=== PATIENT | male | born 1985 | race Hispanic/Latino ===

== ENCOUNTER 2018-02-10 18:00 | Emergency (ER) | payer OTHER, SELFPAY ==
[2018-02-10] MEDS ORDERED: NA CHLORIDE 0.9% 1,000 ML ONE (18:20)
[2018-02-10 18:26] LABS: Absolute Lymphocytes (CBC) 2.3 K/uL (0.7-4.9); Absolute Monocytes 1.2 K/uL (0.1-1.3); Absolute Neutrophil 6.6 K/uL (1.8-8.0); Basophils % 0.8 % (0-1.3); Hematocrit 42.8 % (39.6-49.0); Lymphocytes % 22.2 % (15.3-44.8); MCH 30.8 pg (27.0-35.0); MCV 93.3 fL (80-100); MPV 8.3 fL (7.6-11.3); Monocytes % 11.6 % (3.3-12.3); RBC Red Blood Cell Count 4.59 M/uL (4.33-5.43)
[2018-02-10 18:35] LABS: Protime INR 0.97
[2018-02-10 18:41] LABS: Bicarbonate 24 mEq/L (21-31); Glucose Level 112 mg/dL (65-120); Potassium 3.8 mEq/L (3.6-5.0); Sodium Level 135 mEq/L (135-145)
[2018-02-10 18:47] LABS: ALT/SGPT 22 IU/L (10-60); AST/SGOT 27 IU/L (10-42); Albumin 3.9 g/dL (3.2-5.5); Alkaline Phosphatase 64 IU/L (42-121); BUN Blood Urea Nitrogen 15 mg/dL (6-20); Bilirubin Direct < 0.1 mg/dL (0-0.2); Bilirubin Total 0.3 mg/dL (0.3-1.2); Creatine Phosphokinase 204 IU/L (22-269); Magnesium 1.9 mg/dL (1.8-2.5); Protein, Total 7.1 g/dL (6.0-8.3)
--- NOTE | 2018-02-10 19:26 | RAD REPORT ---
EXAM DESCRIPTION: CT - Chest For Pe Angio - 02/10/2018 7:02 pm CLINICAL HISTORY: Chest pain and syncope COMPARISON: None. TECHNIQUE: Dynamically enhanced axial 3 mm thick images of the chest were obtained during administra tion of <100> mL Isovue 370 IV contrast. Coronal and oblique reconstruction images were generated and reviewed. Exam utilizes a protocol for optimal evaluation of pulmonary arterial tree. All CT scans are performed using dose optimization technique as appropriate and may include automated exposure control or mA/KV adjustment according to patient size. FINDINGS: The opacification of pulmonary arteries is somewhat suboptimal is secondary to respiratory motion artifact. A gross pulmonary embolus is not seen. The heart is mildly to moderately enlarged. A thoracic aortic aneurysm is not noted. A pleural effusion is not seen. A pericardial effusion is not seen. A lung consolidation is not present. IMPRESSION: No gross evidence for pulmonary embolism Mild to moderate cardiomegaly. The left ventricle has a somewhat unusual appearance. Evaluation with ECHO may be helpful for further evaluation
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
[2018-02-10] MEDS ORDERED: FENTANYL CITR 100 MCG/2 ML ONE (21:08)
--- NOTE | 2018-02-11 06:47 | EKG ---
Test Date: 2018-02-10 Test Time: 19:27:25 Materials And Processes Manager: TATYANA MEASUREMENT RESULTS: Intervals: Rate: 67 MD: 190 QRSD: 120 QT: 388 QTc: 409 [place]: P: 30 MD: 190 QRS: 131 T: -1 INTERPRETIVE STATEMENTS: Normal sinus rhythm Right axis deviation Nonspecific intraventricular conduction delay Non specific T wave abnormality Abnormal ECG No previous ECG available for comparison Electronically Signed On 02-11-18 06:47:01 CDT by Corey Romero
== END 2018-02-10 21:56 | disposition short-term general hospital (02) ==
LOC: ER 18:00
DX: I51.7 Cardiomegaly (principal); R01.1 Cardiac murmur, unspecified
CPT/HCPCS: 36415; 71275; 80048; 80076; 82550; 83735; 83880; 84484; 85025; 85610; 87040; 93005; 96361; 96374; 99285; J3010; J7030; Q9967

== ENCOUNTER 2020-07-25 12:43 | Emergency (ER) | payer SELFPAY ==
--- OUTSIDE RECORDS SUMMARY | 2020-07-25 12:45 | XMS REPORT | Clinical Summary ---
:1985 Author Organization [facility] Address [address] [place] [address] Care Team Providers Name Role Phone Unavailable Primary Care Provider Unavailable Allergies No Known Allergies Medications No known medications Active Problems Problem Noted Date Syncope, unspecified syncope type 02/12/2018 Syncope 02/11/2018 Brugada syndrome 02/10/2018 Marijuana abuse 02/10/2018 Tobacco abuse 02/10/2018 ETOH abuse 02/10/2018 Social History Tobacco Use Types Packs/Day Years Used Date Current Every Day Smoker 0.5 10 Smokeless Tobacco: Never Used Tobacco Cessation: Ready to Quit: No Alcohol Use Drinks/Week oz/Week Comments Yes 4 Cans of beer 4.0 hasn't drank sin ce 02/04 Sex Assigned at Date Recorded Not on file Last Filed Vital Signs Not on file Plan of Treatment Health Maintenance Due Date Last Done Comments PNEUMOCOCCAL VACCINE 0-64 YRS (1 of 1 - PPSV23) 1992 INFLUENZA VACCINE (#1) 2020 LIPID PANEL 02/11/2021 02/11/2018 Results Not on fileafter 07/25/2019 Advance Directives For more information, please contact: [phone] Code Status Date Activated Date Inactivated Comments Full Code 02/11/2018 12:28 AM 02/14/2018 9:06 PM This code status was determined by: Patient
--- OUTSIDE RECORDS SUMMARY | 2020-07-25 12:45 | XMS REPORT | Continuity of Care Document ---
:1985 Author Organization [facility] t Address [address] [place] [address] Care Team Providers Name Role Phone CELIO Attending Clinician Unavailable MITUL JEAN Admitting Clinician Unavailable Problems Condition Condition Condition Status Onset Resolution Last Treating Co mments Source Name Details Category Date Date Treatment Clinician Date Syncope, Syncope, Disease [facility] Denisha kes - d syncope d syncope 00:00: [facility] jigna type type 00 Center Syncope Syncope [facility] [place] Brugada Brugada Disease Active [facility] syndrome [facility] Marijuana Marijuana Disease Active [facility] abuse abuse [facility] 00 [place] Tobacco Tobacco Disease Active [facility] ETOH abuse ETOH abuse Disease Active [facility] Allergies, Adverse Reactions, Alerts This patient has no known allergies or adverse reactions. Social History Social Habit Start Date Stop Date Quantity Comments Source Sex Assigned At [facility] Cigarettes smoked 2018-02-10 2018-02-[address] [facility] - current (pack per 00:00:00 00:[facility]:00 [facility] Center day) - Reported Cigarette 2018-02-10 2018-02-[address] [facility] - pack-years 00:00:00 00:00:00 [facility] Tobacco use and 2018-02-10 2018-02-10 Never used [facility] St Denisha kes - exposure 00:00:00 00:00:00 [facility] Alcohol intake 2018-02-10 2018-02-10 [facility]00 [facility] alcohol [facility] Center (finding) Alcohol Comment 2018-02-10 2018-02-[address] [facility] - 00:00:00 00:00:00 since 02/04 [facility] Center Smoking Status Start Date Stop Date Source Current every day smoker 2018-02-10 00:00:00 [facility] Medications This patient has no known medications. Procedures This patient has no known procedures. Plan of Care Planned Activity Planned Date Details Comments Source Future Scheduled 2021-02-[address] [facility]00 (procedure) [code = [facility] [id number]] Future Scheduled 2020-05-13 INFLUENZA VACCINE (#1) [facility]00 [code = INFLUENZA Medical Ce nter VACCINE (#1)] Future Scheduled [address] [facility] - Test 00:00:00 0-64 YRS (1 of 1 - Medical C enter PPSV23) [code = PNEUMOCOCCAL VACCINE 0-64 YRS (1 of 1 - PPSV23)] Results Test Description Test Time Test Comments Results Result Comments Source COMPREHENSIVE METABOLIC PANEL 2018-02-14 05:35:00 Test Item Value Reference Range Interpretation Comme nts TOTAL PROTEIN (BEAKER) 7.6 gm/dL 6.0-8.3 (test code = 770) ALBUMIN (BEAKER) (test code 4.3 g/dL 3.5-5.0 = 1145) ALKALINE PHOSPHATASE 75 U/L 40-150 (BEAKER) (test code = 346) BILIRUBIN TOTAL (BEAKER) 0.3 mg/dL 0.2-1.2 (test code = 377) SODIUM (BEAKER) (test code 135 meq/L 136-145 L = 381) POTASSIUM (BEAKER) (test 4.6 meq/L 3.5-5.1 code = 379) CHLORIDE (BEAKER) (test 100 meq/L 98-107 code = 382) CO2 (BEAKER) (test code = 27 meq/L 22-29 355) BLOOD UREA NITROGEN 18 mg/dL 7-21 (BEAKER) (test code = 354) CREATININE (BEAKER) (test 0.81 mg/dL 0.57-1.25 code = 358) GLUCOSE RANDOM (BEAKER) 103 mg/dL 70-105 (test code = 652) CALCIUM (BEAKER) (test code 9.8 mg/dL 8.4-10.2 = 697) AST (SGOT) (BEAKER) (test 18 U/L 5-34 code = 353) ALT (SGPT) (BEAKER) (test 22 U/L 6-55 code = 347) EGFR (BEAKER) (test code = 111 mL/min/1.73 sq m ESTIMATED GFR IS NOT 1092) ACCURATE CRE ATININE CLEARANCE IN [place] EDICTING GLOMERULAR FILT RATION RATE. ESTIMATED GFR IS NOT APPLICABLE FOR DIALYSIS PATIEN TS. CBC (HEMOGRAM ONLY)2018-02-14 04:36:00 Test Item Value Reference Range Interpretation Comments WHITE BLOOD CELL COUNT (BEAKER) 9.2 K/ L 3.5-10.5 (test code = 775) RED BLOOD CELL COUNT (BEAKER) 4.62 M/ L 4.63-6.08 L (test code = 761) HEMOGLOBIN (BEAKER) (test code = 14.1 GM/DL 13.7-17.5 410) HEMATOCRIT (BEAKER) (test code = 42.4 % 40.1-51.0 411) MEAN CORPUSCULAR VOLUME (BEAKER) 91.8 fL 79.0-92.2 (test code = 753) MEAN CORPUSCULAR HEMOGLOBIN 30.5 pg 25.7-32.2 (BEAKER) (test code = 751) MEAN CORPUSCULAR HEMOGLOBIN CONC 33.3 GM/DL 32.3-36.5 (BEAKER) (test code = 752) RED CELL DISTRIBUTION WIDTH 12.8 % 11.6-14.4 (BEAKER) (test code = 412) PLATELET COUNT (BEAKER) (test 354 K/CU MM 150-450 code = 756) MEAN PLATELET VOLUME (BEAKER) 9.7 fL 9.4-12.4 (test code = 754) NUCLEATED RED BLOOD CELLS 0 /100 WBC 0-0 (BEAKER) (test code = 413) MR, CARDIAC, [id number] 17:41:00Reason for exam:->dlated RV on echo, incomplete RBBB, syncope, evaluate for ARVDFINAL REPORT Cardiac MRI, 13 February 2018 INDICATION: This is a 32-year old male with a diagnosis of dilated RV by echocardiography, incomplete right bundle-branch and syncope presents for assessment. TECHNIQUE: Shwetha ACHIEVA MRI scanner. Morphologic and dynamic cine imaging was performed in multiple projections before and after contrast administration. Thereafter, gadoliniumwas administered, which was then followed by viability/scar imaging. A phased array surface coil wasused for enhanced resolution and ojhvoi-me-eaqhe ratio. Please refer to the contrast sheet scanned in the EPIC system for the amount and route of contrast given. Scanning blood pressure was 120/78. Patient weighs 151 pounds, and the estimated heights is approximately 71 inches. Body surface area is estimated to be 1.85 sq m. FINDINGS: The chest wall and mediastinum are remarkable. Limited imagingof the lungs reveals no gross abnormality; MR is not optimizing assessment of pulmonary parenchymal lung disease. The cardiac chambers demonstrate normal atrioventricular concordance and systemic and pu lmonary venous return. The thoracic aorta is normal in course, caliber, and contour. Central bony artery is normal in calibre. The left ventricle at the upper limits of normal in size, with preserved systolic function. There are no segmental wall motion abnormalities. Quantitative values are as follows: EDV = 200 cc; ESV = 94 cc; stroke volume = 106 cc; and ejection fraction = 53%. Calculated absolute cardiac output = 6.1 liters/min. Absolute left ventricular mass = 108 grams. Index LVEDV = 108 cc/sq m. There is no evidence of hypertrophic cardiomyopathy or left ventricular non-compaction. Viability / scar imaging reveals full thickness, viable myocardium in the entire left ventricle. Thereis no prior myocardial damage. Ventricular thrombus is not identified. A focus examination was performed in the right ventricle, including the infundibulum. There is no MRI findings indicate the presence of ARVD. Specifically, there is no fatty or fibrous replacement of the right ventricle. No regional wall motion abnormalities are identified. Overall right ventricular function is normal. There is no abnormal enhancement of the right ventricular myocardium after gadolinium administration. Quantitative right ventricular functional values are as follows: EDV = 192 cc; ESV = 93 cc; stroke volume =99 cc; and ejection fraction = 52%. Index RV EDV = 104 cc/sq m that is within normal reference range. In the spin echo images, coronary artery origins are normal with no evidence of anomalous coronary artery return. Cine imaging and flow quantification reveal normal aortic, mitral, and tricuspid valve function. CONCLUSIONS: 1. The left ventricle is normal in size and function. Ejection fraction is quantified to be 53%. Quantitative left ventricular functional values are as described above. Viability/scar imaging reveals full thickness, viable appearing myocardium in the entire left ventricle.2. There is no MRI findings to suggest ARVD or other right ventricular cardiomyopathy. There is no focal or generalised aneurysmal dilation of the right ventricle. Normal contraction is seen in the right ventricular myocardium. No regional wall motion abnormalities are identified. Right ventricular function is normal and the RV size is normal. There is no abnormal enhancement of the right ventricular myocardium after gadolinium administration. In the presence of RV cardiomyopathy/AICD, one would probably expect left bundle branch block and not right bundle branch block. Quantitative right ventricular functional values are as described above. 3. Normal coronary artery origins. 4. Note, a lot of time was spent on the evaluation of the pericardium. In the axial images, the apex of the left ventricle is pointing towards the left axilla, that is somewhat unusual. Both spin echo and gradient echo images were available. The pericardium is never confidently identified. Epicardial fat is identified especially along the RV though the right ventricle is immediately posterior to the left-sided c hest wall,, and no pericardial fat is appreciated either. In the cine imaging, no obvious pericardium is identified along the left ventricle, when viewed from the four-chamber and short axis cine imaging. Fatty tissue (a normal finding, instead of lung tissue, is identified between the ascending aorta and the main pulmonary artery). 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 No strangulation of the left atrial appendage is identified. In certain case report, this is associated with incomplete right bundle branch block. It is doubtful the above finding would be the course of the syncope. Correlate clinic ally. Signed: Alex Orosco MDReport Verified Date/Time: 02/13/2018 17:41:20 Reading Location: [facility] P047 Cardiology MRI EEG AWAKE AND [id number] 14:17:00Reason for exam:->LOC, ? SeizuresDate(s) of EE02/13/2018 DATE OF REPORT: 02/13/2018 ACC: [id number] EEG Number: [id number] Test Location: Inpatient Start time: 09:50 Stop time: 10:12 ICD-10: R56.9, R55 CPT Code: 90948 HISTORY: 32 y/o man with hx of tobacco use who presented to an OSH with nausea, SOB, chest pain, syncope on arrival lasting 45 seconds associated with stiffness of extremities and rapid recovery MEDICATIONS THAT COULD AFFECT EEG: hydrocodone, ondansetron TECHNICAL SUMMARY: This is a digital video-EEG recorded with 32 input channels reviewed with bipolar and referential montages using the modified combinatorial system nomenclature. DESCRIPTION OF RECORD: During the maximally alert state a 9-10 Hz posterior dominant rhythm was seen that was symmetric, reactive to eye opening and well regulated. More anteriorly, low voltage frontocentral beta predominated. Drowsiness was characterized by alpha attenuation and increased frontocentral theta. Stage 2 sleep was not reached. SIGNIFICANT VIDEO EVENTS: None SIGNIFICANT ELECTROCARDIOGRAM EVENTS: The EKG shows a regular rhythm with intermittent bradycardia (down to ~40bpm). HV: Hyperventilation was performed for 3 minutes with good effort. No change was s een with HV. PHOTIC STIMULATION: Photic stimulation was done from 1-33 Hz; no photic driving was seen; photoparoxysmal responses were absent. IMPRESSION and CLINICAL CORRELATION: This is a normalAwake and Drowsy EEG, but notable for bradycardia during wakefulness. Please clinically correlate. Candy Turcios MD Neurophysiology Fellow Briana Krause MD, PhD Neurophysiology/Epilepsy Attending [facility] COMPREHENSIVE METABOLIC [id number] 05:35:00 Test Item Value Reference Range Interpretation Comments TOTAL PROTEIN 7.0 gm/dL 6.0-8.3 (BEAKER) (test code = 770) ALBUMIN (BEAKER) 4.0 g/dL 3.5-5.0 (test code = 1145) ALKALINE PHOSPHATASE 67 U/L 40-150 (BEAKER) (test code = 346) BILIRUBIN TOTAL 0.3 mg/dL 0.2-1.2 (BEAKER) (test code = 377) SODIUM (BEAKER) (test 137 meq/L 136-145 code = 381) POTASSIUM (BEAKER) 4.6 meq/L 3.5-5.1 (test code = 379) CHLORIDE (BEAKER) 102 meq/L 98-107 (test code = 382) CO2 (BEAKER) (test 26 meq/L 22-29 code = 355) BLOOD UREA NITROGEN 17 mg/dL 7-21 (BEAKER) (test code = 354) CREATININE (BEAKER) 0.80 mg/dL 0.57-1.25 (test code = 358) GLUCOSE RANDOM 100 mg/dL 70-105 (BEAKER) (test code = 652) CALCIUM (BEAKER) 9.4 mg/dL 8.4-10.2 (test code = 697) AST (SGOT) (BEAKER) 24 U/L 5-34 (test code = 353) ALT (SGPT) (BEAKER) 26 U/L 6-55 (test code = 347) EGFR (BEAKER) (test 113 ESTIMATE D GFR IS code = 1092) mL/min/1.73 sq NOT ACCURA TE m CREATININE CLEARANCE IN PREDICTING GLOMERULAR FILTRATION RATE . ESTIMATED GFR I S NOT APPLICABLE FOR DIALYSIS PATIEN TS. CBC (HEMOGRAM ONLY)2018-02-13 05:20:00 Test Item Value Reference Range Interpretation Comments WHITE BLOOD CELL COUNT (BEAKER) 8.3 K/ L 3.5-10.5 (test code = 775) RED BLOOD CELL COUNT (BEAKER) 4.44 M/ L 4.63-6.08 L (test code = 761) HEMOGLOBIN (BEAKER) (test code = 13.7 GM/DL 13.7-17.5 410) HEMATOCRIT (BEAKER) (test code = 40.9 % 40.1-51.0 411) MEAN CORPUSCULAR VOLUME (BEAKER) 92.1 fL 79.0-92.2 (test code = 753) MEAN CORPUSCULAR HEMOGLOBIN 30.9 pg 25.7-32.2 (BEAKER) (test code = 751) MEAN CORPUSCULAR HEMOGLOBIN CONC 33.5 GM/DL 32.3-36.5 (BEAKER) (test code = 752) RED CELL DISTRIBUTION WIDTH 12.8 % 11.6-14.4 (BEAKER) (test code = 412) PLATELET COUNT (BEAKER) (test 311 K/CU MM 150-450 code = 756) MEAN PLATELET VOLUME (BEAKER) 10.5 fL 9.4-12.4 (test code = 754) NUCLEATED RED BLOOD CELLS 0 /100 WBC 0-0 (BEAKER) (test code = 413) TROPONIN [id number] 02:02:00 Test Item Value Reference Range Interpretation Comments TROPONIN I (BEAKER) (test code = 397) < ng/mL 0.00-0.03 Troponin I (TnI) levels must be interpreted in the context of the presenting symptoms and the clinical findings. Elevated TnI levels indicate myocardial damage, but are not specific for ischemic heart disease. Elevated TnI levels are seen in patients with other cardiac conditions (including myocarditis and congestive heart failure), and slight TnI elevations occur in patients with other conditions, including sepsis, renal failure, acidosis, acute neurological disease, and persistent tachyarrhythmia.B-TYPE NATRIURETIC FACTOR (BNP) 2018-02-11 19:19:00 Test Item Value Reference Range Interpretation Comments B-TYPE NATRIURETIC PEPTIDE (BEAKER) 78 pg/mL 0-100 (test code = 700) TROPONIN [id number] 18:56:00 Test Item Value Reference Range Interpretation Comments TROPONIN I (BEAKER) (test code = 397) < ng/mL 0.00-0.03 Troponin I (TnI) levels must be interpreted in the context of the presenting symptoms and the clinical findings. Elevated TnI levels indicate myocardial damage, but are not specific for ischemic heart disease. Elevated TnI levels are seen in patients with other cardiac conditions (including myocarditis and congestive heart failure), and slight TnI elevations occur in patients with other conditions, including sepsis, renal failure, acidosis, acute neurological disease, and persistent tachyarrhythmia.RAPID DRUG SCREEN, [id number] 13:11:00 Test Item Value Reference Range Interpretation Comments BARBITURATE URINE (BEAKER) (test Negative Negative code = 725) BENZODIAZEPINE SCREEN URINE (BEAKER) Negative Negative (test code = 726) COCAINE (METAB.) SCREEN (BEAKER) Negative Negative (test code = 1164) METHADONE SCREEN (BEAKER) (test code Negative Negative = 1436) OPIATE SCREEN URINE (BEAKER) (test Positive Negative A code = 734) CANNABINOID SCREEN URINE (BEAKER) Positive Negative A (test code = 727) AMPH/METHAMPH SCREEN (BEAKER) (test Negative Negative code = 1438) PHENCYCLIDINE SCREEN URINE (BEAKER) Negative Negative (test code = 608) OXYCODONE SCREEN URINE (BEAKER) Negative Negative (test code = 2761) DRUG CUTOFF CONC.Cocaine 300 ng/mL Cannabinoid 50 ng/mL Benzodiazepine 200 ng/mLBarbiturate 200 ng/mLPhencyclidine 25 ng/mLOpiate 300 ng/mLMethadone 300 ng/mLAmphetamine/ 1000 ng/mL MethamphetamineOxycodone 300 ng/mLThis assay provides an unconfirmed qualitative test result for the clinical management of patients in emergency situations. Chain of custody not maintained. Some srxo-odu-rsqmebb medications, as well as adulterants, may cause inaccurate results. Clinical correlation should be applied. A more comprehensive drug screen or confirmation of a detected drug may be performed upon request. HEMOGLOBIN [id number] 10:09:00 Test Item Value Reference Range Interpretation Comments HEMOGLOBIN A1C (BEAKER) (test code = 5.5 % 4.3-6.1 368) TSH/FREE T4 IF [id number] 10:08:00 Test Item Value Reference Range Interpretation Comments THYROID STIMULATING HORMONE 0.64 uIU/mL 0.35-4.94 (BEAKER) (test code = 772) CBC W/PLT COUNT & AUTO [id number] 07:04:00 Test Item Value Reference Range Interpretation Comments WHITE BLOOD CELL COUNT (BEAKER) 9.9 K/ L 3.5-10.5 (test code = 775) RED BLOOD CELL COUNT (BEAKER) 4.20 M/ L 4.63-6.08 L (test code = 761) HEMOGLOBIN (BEAKER) (test code = 12.9 GM/DL 13.7-17.5 L 410) HEMATOCRIT (BEAKER) (test code = 38.1 % 40.1-51.0 L 411) MEAN CORPUSCULAR VOLUME (BEAKER) 90.7 fL 79.0-92.2 (test code = 753) MEAN CORPUSCULAR HEMOGLOBIN 30.7 pg 25.7-32.2 (BEAKER) (test code = 751) MEAN CORPUSCULAR HEMOGLOBIN CONC 33.9 GM/DL 32.3-36.5 (BEAKER) (test code = 752) RED CELL DISTRIBUTION WIDTH 12.8 % 11.6-14.4 (BEAKER) (test code = 412) PLATELET COUNT (BEAKER) (test 282 K/CU MM 150-450 code = 756) MEAN PLATELET VOLUME (BEAKER) 11.1 fL 9.4-12.4 (test code = 754) NUCLEATED RED BLOOD CELLS 0 /100 WBC 0-0 (BEAKER) (test code = 413) NEUTROPHILS RELATIVE PERCENT 69 % (BEAKER) (test code = 429) LYMPHOCYTES RELATIVE PERCENT 18 % (BEAKER) (test code = 430) MONOCYTES RELATIVE PERCENT 9 % (BEAKER) (test code = 431) EOSINOPHILS RELATIVE PERCENT 3 % (BEAKER) (test code = 432) BASOPHILS RELATIVE PERCENT 1 % (BEAKER) (test code = 437) NEUTROPHILS ABSOLUTE COUNT 6.85 K/ L 1.78-5.38 H (BEAKER) (test code = 670) LYMPHOCYTES ABSOLUTE COUNT 1.81 K/ L 1.32-3.57 (BEAKER) (test code = 414) MONOCYTES ABSOLUTE COUNT (BEAKER) 0.88 K/ L 0.30-0.82 H (test code = 415) EOSINOPHILS ABSOLUTE COUNT 0.25 K/ L 0.04-0.54 (BEAKER) (test code = 416) BASOPHILS ABSOLUTE COUNT (BEAKER) 0.07 K/ L 0.01-0.08 (test code = 417) IMMATURE GRANULOCYTES-RELATIVE 0 % 0-1 PERCENT (BEAKER) (test code = 2801) [id number] 06:16:00 Test Item Value Reference Range Interpretation Comments PHOSPHORUS (BEAKER) (test code = 3.1 mg/dL 2.3-4.7 604) [id number] 06:16:00 Test Item Value Reference Range Interpretation Comments MAGNESIUM (BEAKER) (test code = 2.1 mg/dL 1.6-2.6 627) BASIC METABOLIC [id number] 06:16:00 Test Item Value Reference Range Interpretation Comments SODIUM (BEAKER) 136 meq/L 136-145 (test code = 381) POTASSIUM (BEAKER) 4.3 meq/L 3.5-5.1 (test code = 379) CHLORIDE (BEAKER) 104 meq/L 98-107 (test code = 382) CO2 (BEAKER) (test 25 meq/L 22-29 code = 355) BLOOD UREA NITROGEN 12 mg/dL 7-21 (BEAKER) (test code = 354) CREATININE (BEAKER) 0.76 mg/dL 0.57-1.25 (test code = 358) GLUCOSE RANDOM 115 mg/dL 70-105 H (BEAKER) (test code = 652) CALCIUM (BEAKER) 8.8 mg/dL 8.4-10.2 (test code = 697) EGFR (BEAKER) (test 120 mL/min/1.73 ESTIM ATED GFR IS code = 1092) sq m NOT ACCURATE CREATININE CLEARANCE IN PREDICTING GLOMERULAR FILTRATION RATE . ESTIMATED GFR I S NOT APPLICABLE FOR DIALYSIS PATICATRACHITO TS. LIPID [id number] 06:16:00 Test Item Value Reference Range Interpretation Comments TRIGLYCERIDES (BEAKER) (test code = 132 mg/dL 540) CHOLESTEROL (BEAKER) (test code = 150 mg/dL 631) HDL CHOLESTEROL (BEAKER) (test code 35 mg/dL = 976) LDL CHOLESTEROL CALCULATED (BEAKER) 89 mg/dL (test code = 633) Triglyceride Reference Range: Low Risk <150 Borderline 150-199 High Risk 200-499 Very High Risk >=500Cholesterol Reference Range: Low Risk <200 Borderline 200-239 High Risk >240HDL Cholesterol Reference Range: Low Risk >=60 High Risk <40LDL Cholesterol Reference Range: Optimal <100 Near Optimal 100-129 Borderline 130-159 High 160-189 Very High >=190
[2020-07-25] MEDS ORDERED: NA CHLORIDE 0.9% 1,000 ML ONE (13:45)
--- NOTE | 2020-07-25 13:53 | ER ---
Nurse's Notes [facility] Name: Stevo Siegel Age: 35 yrs Sex: Male : 1985 Arrival Date: 07/25/2020 Time: 12:50 Bed 15 Private MD: Diagnosis: Suicidal ideations;Abuse of non-psychoactive substances;Adverse effect of amphetamines Presentation: 07/25 12:50 Chief complaint: Patient states: attempted hanging but states "it was all a show". I dm5 explained the process to getting him the help that he needs that that he would be speaking with a [facility] Car Audio Installer to get their recommendation on inpatient vs outpatient. Coronavirus screen: Client denies travel out of the [place] in the last 14 days. At this time, the client does not indicate any symptoms associated with coronavirus-19. Ebola Screen: Patient negative for fever greater than or equal to 101.5 degrees Fahrenheit, and additional compatible Ebola Virus Disease symptoms Patient denies exposure to infectious person. Patient denies travel to an Ebola-affected area in the 21 days before illness onset. No symptoms or risks identified at this time. Initial Sepsis Screen: Does the patient meet any 2 criteria? No. Patient's initial sepsis screen is negative. Does the patient have a suspected source of infection? No. Patient's initial sepsis screen is negative. Risk Assessment: Do you want to hurt yourself or someone else? Patient reports desire/thoughts of hurting themselves or someone else. Provider notified. 12:50 Method Of Arrival: Law Enforcement: [place] dm5 12:50 Acuity: LELA 2 dm5 13:10 Onset of symptoms was July 25, 2020. ca1 Historical: - Allergies: 13:46 No Known Allergies; ca1 - Home Meds: 13:46 None [Active]; ca1 - PMHx: 13:46 None; ca1 - PSHx: 13:46 None; ca1 - Immunization history:: Adult Immunizations up to date, Flu vaccine is up to date. - Social history:: Smoking status: Patient reports the use of cigarette tobacco products, smokes one pack cigarettes per day. - Family history:: not pertinent. Screenin:46 Abuse screen: Denies threats or abuse. Denies injuries from another. Nutritional ca1 screening: No deficits noted. Tuberculosis screening: No symptoms or risk factors identified. Fall Risk None identified. Assessment: 13:00 General: Appears in no apparent distress. comfortable, Behavior is calm, cooperative, ca1 appropriate for age, Pt states, "I did not want to kill myself. I just wanted to make a point". Pain: Denies pain. Neuro: Level of Consciousness is awake, alert, obeys commands, Oriented to person, place, time, situation. Cardiovascular: Heart tones S1 S2 present Capillary refill < 3 seconds Patient's skin is warm and dry. Respiratory: Airway is patent Respiratory effort is even, unlabored, Respiratory pattern is regular, symmetrical, Breath sounds are clear. GI: Abdomen is flat, non-distended, Bowel sounds present X 4 quads. Abd is soft and non tender X 4 quads. : No signs and/or symptoms were reported regarding the genitourinary system. EENT: No signs and/or symptoms were reported regarding the EENT system. Derm: Skin is intact, is healthy with good turgor, Skin is pink, warm \\T\\ dry. Musculoskeletal: Circulation, motion, and sensation intact. Capillary refill < 3 seconds. 13:54 Reassessment: Patient appears in no apparent distress at this time. Patient and/or ca1 family updated on plan of care and expected duration. Pain level reassessed. Patient is alert, oriented x 3, equal unlabored respirations, skin warm/dry/pink. Psych: 13:10 Subjective: Patient's mood is appropriate Delusions are denied, Hallucinations are ca1 denied Having thoughts of suicide. Denies suicidal plan. Objective: Patient is cooperative, Speech is normal, Affect is appropriate. Interventions: Removed personal items and placed in bag. Patient placed in hospital gown. Searched person for dangerous items. Urine collected and sent for urine drug test. Belonging list filled out. Suicide Risk Assessment: Sad Person Scale: Sex of patient: Male: Score 1 point. Age of patient: Score 1 point if patient 15-34. Depression: Score 0 point if signs of depression are not present. Previous Attempt: Score 0 point if patient has not previously attempted suicide. Substance Abuse: Score 1 point if patient abuses alcohol or drugs. Rational Thinking: Score 0 point if patient has rational thinking. Social Support: Score 0 if social support is present/available. Organized Plan: Score 0 if patient did not have an organized plan in place. Relationship: Score 0 point if patient has a spouse or domestic partner. Chronic Sickness: Score 0 point if patient does not have a chronic illness, debilitating, or severe disorder. TOTAL POINTS: If total points are 3-4, proposed clinical action is close follow-up/consider hospitalization. Safety Checks: Personal items have been removed. Door is open. Visitors are present. Patient uses 1 bottle of beer, weekly. Last use was 1 months ago. Patient uses marijuana daily. 14:01 Commitment: pt discharged. ca1 Vital Signs: 13:11 BP 135 / 94; Pulse 82; Resp 22; Temp 97.9; Pulse Ox 100% on R/A; ca1 13:54 BP 128 / 89; Pulse 80; Resp 20 S; Pulse Ox 100% on R/A; ca1 ED Course: 12:50 Patient arrived in ED. dm5 12:57 Adryan Fonseca MD is Attending Physician. [facility] 12:58 Triage completed. dm5 13:01 Beatrice Finley RN is Primary Nurse. ca1 13:04 Valuables inventory done. Locked in safe. clothes and valuables given to security. dm5 Checked by myself and Messi Jay RN. 13:10 Warm blanket given. ca1 13:10 Arm band placed on. ca1 13:27 Inserted saline lock: 20 gauge in right antecubital area, using aseptic technique. dh4 Blood collected. 13:50 Bartolo Melendez MD is Referral Physician. [facility] 13:55 No provider procedures requiring assistance completed. ca1 14:01 IV discontinued, intact, bleeding controlled, No redness/swelling at site. Pressure ca1 dressing applied. Administered Medications: 13:36 Drug: NS 0.9% 1000 ml Route: IV; Rate: 1 bolus; Site: right antecubital; ca1 14:00 Follow up: Response: No adverse reaction; IV Status: Completed infusion; IV Intake: ca1 1000ml Intake: 14:00 IV: 1000ml; Total: 1000ml. ca1 Outcome: 13:53 Discharge ordered by . fabiola 14:01 Discharged to home ambulatory, with family. ca1 14:01 Condition: stable 14:01 Discharge instructions given to patient, Instructed on discharge instructions, follow up and referral plans. Demonstrated understanding of instructions, follow-up care. 14:02 Patient left the ED. ca1 Signatures: Kim Sun RN RN dm5 Adryan Fonseca MD MD cha Acob, Cheryl, RN RN ca1 Avelino Carvajal 4 Corrections: (The following items were deleted from the chart) 13:46 13:46 Warm blanket given. ca1 ca1 13:55 13:00 General: Appears in no apparent distress. comfortable, Behavior is calm, ca1 cooperative, appropriate for age, ca1
--- NOTE | 2020-07-25 13:53 | EDPHYS ---
Physician Documentation [facility] Name: Stevo Siegel Age: 35 yrs Sex: Male : 1985 Arrival Date: 07/25/2020 Time: 12:50 Bed 15 Private MD: ED Physician Adryan Fonseca HPI: 07/25 13:47 This 35 yrs old Male presents to ER via Law Enforcement with complaints of fabiola Suicidal Ideation. 13:47 The patient presents to the emergency department with depression, suicide ideation. fabiola Onset: The symptoms/episode began/occurred today. Past psychiatric history: Prior diagnosis: depression. Associated signs and symptoms: Pertinent positives; substance abuse, suicide ideation. Severity of symptoms: At their worst the symptoms were mild moderate in the emergency department the symptoms have resolved and did so while in waiting room. The patient has experienced similar episodes in the past, a few times. Historical: - Allergies: 13:46 No Known Allergies; ca1 - Home Meds: 13:46 None [Active]; ca1 - PMHx: 13:46 None; ca1 - PSHx: 13:46 None; ca1 - Immunization history:: Adult Immunizations up to date, Flu vaccine is up to date. - Social history:: Smoking status: Patient reports the use of cigarette tobacco products, smokes one pack cigarettes per day. - Family history:: not pertinent. ROS: 13:47 Constitutional: Negative for fever, chills, and weight loss, Eyes: Negative for injury, fabiola pain, redness, and discharge, ENT: Negative for injury, pain, and discharge, Neck: Negative for injury, pain, and swelling, Cardiovascular: Negative for chest pain, palpitations, and edema, Respiratory: Negative for shortness of breath, cough, wheezing, and pleuritic chest pain, Abdomen/GI: Negative for abdominal pain, nausea, vomiting, diarrhea, and constipation, Back: Negative for injury and pain, : Negative for injury, bleeding, discharge, and swelling, MS/Extremity: Negative for injury and deformity, Skin: Negative for injury, rash, and discoloration, Neuro: Negative for headache, weakness, numbness, tingling, and seizure, Psych: Negative for depression, anxiety, suicide ideation, homicidal ideation, and hallucinations, Allergy/Immunology: Negative for hives, rash, and allergies, Endocrine: Negative for neck swelling, polydipsia, polyuria, polyphagia, and marked weight changes, Hematologic/Lymphatic: Negative for swollen nodes, abnormal bleeding, and unusual bruising. Exam: 13:49 Constitutional: This is a well developed, well nourished patient who is awake, alert, fabiola and in no acute distress. Head/Face: Normocephalic, atraumatic. Eyes: Pupils equal round and reactive to light, extra-ocular motions intact. Lids and lashes normal. Conjunctiva and sclera are non-icteric and not injected. Cornea within normal limits. Periorbital areas with no swelling, redness, or edema. ENT: Nares patent. No nasal discharge, no septal abnormalities noted. Tympanic membranes are normal and external auditory canals are clear. Oropharynx with no redness, swelling, or masses, exudates, or evidence of obstruction, uvula midline. Mucous membranes moist. Neck: Trachea midline, no thyromegaly or masses palpated, and no cervical lymphadenopathy. Supple, full range of motion without nuchal rigidity, or vertebral point tenderness. No Meningismus. Chest/axilla: Normal chest wall appearance and motion. Nontender with no deformity. No lesions are appreciated. Cardiovascular: Regular rate and rhythm with a normal S1 and S2. No gallops, murmurs, or rubs. Normal PMI, no JVD. No pulse deficits. Respiratory: Lungs have equal breath sounds bilaterally, clear to auscultation and percussion. No rales, rhonchi or wheezes noted. No increased work of breathing, no retractions or nasal flaring. Abdomen/GI: Soft, non-tender, with normal bowel sounds. No distension or tympany. No guarding or rebound. No evidence of tenderness throughout. Back: No spinal tenderness. No costovertebral tenderness. Full range of motion. Male : Normal genitalia with no discharge or lesions. Skin: Warm, dry with normal turgor. Normal color with no rashes, no lesions, and no evidence of cellulitis. MS/ Extremity: Pulses equal, no cyanosis. Neurovascular intact. Full, normal range of motion. Neuro: Awake and alert, GCS 15, oriented to person, place, time, and situation. Cranial nerves II-XII grossly intact. Motor strength 5/5 in all extremities. Sensory grossly intact. Cerebellar exam normal. Normal gait. 13:49 Psych: Behavior/mood is pleasant, Affect is calm, Judgement / Insight is normal. Memory is normal. 13:56 ECG was reviewed by the Attending Physician. [facility] Vital Signs: 13:11 BP 135 / 94; Pulse 82; Resp 22; Temp 97.9; Pulse Ox 100% on R/A; ca1 13:54 BP 128 / 89; Pulse 80; Resp 20 S; Pulse Ox 100% on R/A; ca1 MDM: 12:57 Patient medically screened. [facility] 13:53 Differential diagnosis: drug withdrawal. acute psychotic break, depression, psychosis fabiola secondary to non-compliance. Data reviewed: vital signs, nurses notes, lab test result(s), EKG. Data interpreted: electronic device monitor: rate is 82 beats/min, Pulse oximetry: on. Counseling: I had a detailed discussion with the patient and/or guardian regarding: the historical points, exam findings, and any diagnostic results supporting the discharge/admit diagnosis, lab results, the need for outpatient follow up, for definitive care, a psychiatrist. 07/25 12:58 Order name: Acetaminophen [facility] 07/25 12:58 Order name: Basic Metabolic Panel [facility] 07/25 12:58 Order name: CBC with Diff [facility] 07/25 12:58 Order name: ETOH Level [facility] 07/25 12:58 Order name: Hepatic Function [facility] 07/25 12:58 Order name: PT-INR [facility] 07/25 12:58 Order name: Ptt, Activated [facility] 07/25 12:58 Order name: Salicylate [facility] 07/25 12:58 Order name: Urine Drug Screen [facility] 07/25 12:58 Order name: EKG; Complete Time: 12:59 [facility] 07/25 12:58 Order name: EKG - Nurse/Tech; Complete Time: 13:36 [facility] 07/25 12:58 Order name: IV Saline Lock; Complete Time: 13:28 [facility] 07/25 13:58 Order name: Urine Dipstick--Ancillary (enter results) 07/25 12:58 Order name: Labs collected and sent; Complete Time: 13:28 [facility] 07/25 12:58 Order name: Urine Dipstick-Ancillary (obtain specimen); Complete Time: 13:37 [facility] EC:56 Rate is 64 beats/min. Rhythm is regular. QRS [place] is Normal. [place] interval is normal. QRS fabiola interval is normal. QT interval is normal. No Q waves. T waves are Normal. No ST changes noted. Clinical impression: Normal ECG and No evidence of ischemia. Interpreted by me. Reviewed by me. Administered Medications: 13:36 Drug: NS 0.9% 1000 ml Route: IV; Rate: 1 bolus; Site: right antecubital; ca1 14:00 Follow up: Response: No adverse reaction; IV Status: Completed infusion; IV Intake: ca1 1000ml Disposition: 07/25/20 13:53 Discharged to Home. Impression: Suicidal ideations, Abuse of non-psychoactive substances, Adverse effect of amphetamines. - Condition is Stable. - Discharge Instructions: Substance Use Disorder, Suicidal Feelings: How to Help Yourself, Helping Someone Who is Suicidal, Stress and Stress Management. - Medication Reconciliation Form, Thank You Letter, Antibiotic Education, Prescription Opioid Use form. - Follow up: Bartolo Melendez MD; When: 2 - 3 days; Reason: Recheck today's complaints, Re-evaluation by your physician. - Problem is new. - Symptoms have improved. Signatures: Dispatcher [employer] Adryan Fonseca MD MD cha Acob, Cheryl RN RN ca1 Corrections: (The following items were deleted from the chart) 14:02 13:53 07/25/2020 13:53 Discharged to Home. Impression: Suicidal ideations; Abuse of ca1 non-psychoactive substances; Adverse effect of amphetamines. Condition is Stable. Forms are Medication Reconciliation Form, Thank You Letter, Antibiotic Education, Prescription Opioid Use. Follow up: Bartolo Melendez; When: 2 - 3 days; Reason: Recheck today's complaints, Re-evaluation by your physician. Problem is new. Symptoms have improved. fabiola
[2020-07-25 13:54] LABS: Absolute Lymphocytes (CBC) 2.1 K/uL (0.7-4.9); Basophils % 0.7 % (0-1.3); Hematocrit 43.7 % (39.6-49.0); Lymphocytes % 29.9 % (15.3-44.8); RBC Red Blood Cell Count 4.92 M/uL (4.33-5.43)
[2020-07-25 14:01] LABS: Protime INR 1.03
[2020-07-25 14:03] LABS: Barbiturates NEGATIVE (NEGATIVE); Benzodiazepines POSITIVE (NEGATIVE); Cocaine POSITIVE (NEGATIVE); METHAMPHETAM POSITIVE (NEGATIVE); Methadone NEGATIVE (NEGATIVE); Opiates NEGATIVE (NEGATIVE); Phencyclidine NEGATIVE (NEGATIVE); THC Cannibis POSITIVE (NEGATIVE)
[2020-07-25 14:39] VITALS: TEMP 97.9; O2SAT 100
[2020-07-25 14:41] VITALS: BP 128/89
[2020-07-25 14:45] LABS: ALT/SGPT 15 U/L (12-78); AST/SGOT 14 U/L (15-37); Albumin 3.9 g/dL (3.4-5.0); Alkaline Phosphatase 103 U/L (45-117); BUN Blood Urea Nitrogen 15 mg/dL (7-18); Bicarbonate 28 mmol/L (21-32); Bilirubin Direct < 0.1 mg/dL (0-0.2); Bilirubin Total 0.5 mg/dL (0.2-1.0); Glucose Level 93 mg/dL (74-106); Potassium 3.8 mmol/L (3.5-5.1); Protein, Total 7.7 g/dL (6.4-8.2); Sodium Level 139 mmol/L (136-145)
[2020-07-25 20:06] LABS: Urine Blood NEGATIVE (NEG); Urine Glucose NEGATIVE (NEG); Urine Protein 1+ (NEG); Urine pH 6.5 (5.0-7.0)
[2020-07-25 20:28] LABS: Blood Morphology Comment NOT SEEN (NOT SEEN); Platelet Estimate ADEQ; White Blood Cell Scan OK (OK)
--- NOTE | 2020-07-27 07:45 | EKG ---
Test Date: 2020-07-25 Test Time: 13:39:46 Product Test Engineer: CLARK MEASUREMENT RESULTS: Intervals: Rate: 64 DC: 178 QRSD: 130 QT: 396 QTc: 408 [place]: P: 59 DC: 178 QRS: 142 T: 33 INTERPRETIVE STATEMENTS: Normal sinus rhythm Right axis deviation Nonspecific intraventricular block Abnormal ECG Compared to ECG 02/10/2018 19:27:25 Intraventricular conduction delay no longer present T-wave abnormality no longer present Electronically Signed On 07-27-20 07:41:13 [employer]EDIT FRONT OFFICE DEVELOPER by Edinson Ruiz
== END 2020-07-25 14:02 | disposition home or self-care (01) ==
LOC: ER 12:43
DX: R45.851 Suicidal ideations (principal); F55.8 Abuse of other non-psychoactive substances; T43.625A Adverse effect of amphetamines, initial encounter; F17.210 Nicotine dependence, cigarettes, uncomplicated
CPT/HCPCS: 36415; 80048; 80076; 80307; 80320; 80329; 81003; 85025; 85610; 85730; 93005; 99284; J7030